=== PATIENT | male | born 1945 | race Caucasian/White ===

== ENCOUNTER 2024-10-27 18:27 | Inpatient (IN) | payer MEDICARE, OTHER ==
--- NOTE | 2024-10-27 19:01 | ED ---
General Adult HPI - General Chief complaint: Syncope Stated complaint: Hypotension,Fall Time Seen by Provider: 10/27/24 18:45 Source: patient, EMS Mode of arrival: EMS Limitations: no limitations - History of Present Illness Initial comments: Dictation was produced using [employer] dictation software. please excuse any grammatical, word or spelling errors. Chief Complaint: 79-year-old male with dizziness and weakness History of Present Illness: Patient 79-year-old male presents to the emergency department via EMS. Patient was he fell off the toilet around 3:00 PM. Although he has been weak. States that he been significantly dizzy. States that he thinks he is dizzy because the sugar is high. Denies any pain complaints. States that he does not feel dizzy at rest. The ROS documented in this emergency department record has been reviewed and confirmed by me. Those systems with pertinent positive or negative responses have been documented in the HPI. All other systems are other negative and/or noncontributory. - Related Data Allergies Allergy/AdvReac Type Severity Reaction Status Date / Time No Known Allergies Allergy Verified 10/27/24 18:30 Review of Systems ROS Statement: Those systems with pertinent positive or pertinent negative responses have been documented in the HPI. ROS Other: All systems not noted in ROS Statement are negative. Past Medical History Past Medical History: Diabetes Mellitus, Hypertension History of Any Multi-Drug Resistant Organisms: None Reported Past Surgical History: Heart Catheterization Past Psychological History: No Psychological Hx Reported Smoking Status: Never smoker Past Alcohol Use History: None Reported Past Drug Use History: None Reported General Exam - General Exam Comments Initial Comments: PHYSICAL EXAM: General Impression: Alert and oriented x3, not in acute distress HEENT: Normocephalic atraumatic, extra-ocular movements intact, pupils equal and reactive to light bilaterally, mucous membranes moist. Cardiovascular: Heart regular rate and rhythm Chest: Able to complete full sentences, no retractions, no tachypnea Abdomen: abdomen soft, non-tender, non-distended, no organomegaly Musculoskeletal: Pulses present and equal in all extremities, no peripheral edema Motor: no focal deficits noted Neurological: CN II-XII grossly intact, no focal motor or sensory deficits noted Skin: Intact with no visualized rashes Psych: Normal affect and mood Limitations: no limitations Course Vital Signs 10/27/24 18:31 Temperature 97.3 F L Pulse Rate 62 Respiratory 18 Rate Blood Pressure 126/66 O2 Sat by Pulse 96 Oximetry EKG Findings - EKG Comments: EKG Findings:: My EKG interpretation: Ventricular rate 62, sinus rhythm, NE interval 241, cures 94, QTc 410. No NE prolongation, no QTC prolongation, no ST or T-wave changes noted. Overall, this EKG is unremarkable Medical Decision Making - Medical Decision Making Was pt. sent in by a medical professional or institution (, PA, ENTRY LEVEL ASSISTANT MANAGER, urgent care, hospital, or retirement...) When possible be specific @ -No Did you speak to anyone other than the patient for history (EMS, parent, family, police, friend...)? What history was obtained from this source @ -No Did you review nursing and triage notes (agree or disagree)? Why? @ -I reviewed and agree with nursing and triage notes Were old charts reviewed (outside hosp., previous admission, EMS record, old EKG, old radiological studies, urgent care reports/EKG's, retirement records)? Report findings @ -No old charts were reviewed Differential Diagnosis (chest pain, altered mental status, abdominal pain women, abdominal pain men, vaginal bleeding, musculoskeletal, weakness, fever, dyspnea, syncope, headache, dizziness, GI bleed, back pain, seizure, CVA, palpatations, mental health)? @ -Differential Dizziness: Benign paroxysmal positional Vertigo, Meniere's disease, otitis media, acoustic neuroma, vertebrobasilar insufficiency, cerebellar stroke, encephalitis, hypovolemic, arrhythmia, coronary artery syndrome, anemia, this is not meant to be an all-inclusive list EKG interpreted by me (3pts min.). @ -See above X-rays interpreted by me (1pt min.). @ -Pending CT interpreted by me (1pt min.). @ -CT head and C-spine shows no acute processes U/S interpreted by me (1pt. min.). @ -None done What testing was considered but not performed or refused? (CT, X-rays, U/S, labs)? Why? @ -None What meds were considered but not given or refused? Why? @ -None Was smoking cessation discussed for >3mins.? @ -No Were there social determinants of health that impacted care today? How? (Homelessness, low income, unemployed, alcoholism, drug addiction, transport ation, low edu. Level, literacy, decrease access to med. care, [facility], rehab)? @ -No Was there de-escalation of care discussed even if they declined (Discuss DNR or withdrawal of care, Hospice)? DNR status @ -No What co-morbidities impacted this encounter? (DM, HTN, Smoking, COPD, CAD, Cancer, CVA, ARF, Chemo, Hep., AIDS, mental health diagnosis, sleep apnea, morbid obesity)? @ -None Was patient admitted / discharged? Hospital course, mention meds given and route, prescriptions, significant lab abnormalities, going to OR and other pertinent info. @ -79-year-old male presents with dizziness. He did fall earlier today at the toilet. Denies any pain from the fall. Vital signs stable. Patient does take Plavix. CT head and C-spine shows no acute process. EKG is unremarkable. Patient well-appearing at the bedside at rest. Denies any dizziness at rest. Labs shows potassium level of 5.9, sodium 131, lactic acidosis 3.9. Unclear what is causing all of this. Medications were reviewed. Unclear exactly what is causing patient to be hyperkalemic. Patient given hyperkalemia cocktail IV fluids. Will be admitted for further care. Case discussed with hospitalist for admission Did you discuss the management of the patient with other professionals (professionals i.e. , PA, ENTRY LEVEL ASSISTANT MANAGER, lab, RT, psych nurse, certified social workers in health care, offender job retention specialist, teacher, school services officer, case picker)? Give summary @ -See above Was critical care preformed (if so, how long)? @ -No Undiagnosed new problem with uncertain prognosis? @ -No Drug Therapy requiring intensive monitoring for toxicity (Heparin, Nitro, Insu raman, Cardizem)? @ -No Were any procedures done? @ -No Diagnosis/symptom? Acute, or Chronic, or Acute on Chronic? Uncomplicated (without systemic symptoms) or Complicated (systemic symptoms)? @ -Metabolic derangement Side effects of treatment? @ -No Exacerbation, Progression, or Severe Exacerbation? @ -No Poses a threat to life or bodily function? How? (Chest pain, USA, ID, pneumonia, PE, COPD, DKA, ARF, appy, cholecystitis, CVA, Diverticulitis, Homicidal, Suicidal, threat to staff... and all critical care pts) @ -yes - Lab Data Result diagrams: 10/27/24 19:07 10/27/24 19:07 Lab Results 10/27/24 10/27/24 10/27/24 Range/Units 19:07 19:07 19:07 WBC 16.56 H (4.50-10.00) 10*3/uL RBC 3.52 L (4.40-5.60) 10*6/uL Hgb 11.7 L (13.0-17.0) g/dL Hct 33.5 L (39.6-50.0) % MCV 95.2 (80.0-97.0) fL MCH 33.2 H (27.0-32.0) pg MCHC 34.9 (32.0-37.0) g/dL Plt Count 250 (140-440) 10*3/uL MPV 9.1 L (9.5-12.2) fL Immature Gran % (Auto) 1.0 % Neutrophils % 84.6 % Lymphocytes % 9.1 % Monocytes % 4.9 % Eosinophils % 0.1 % Basophils % 0.3 % Immature Gran # 0.17 H (0.00-0.04) 10*3/uL Neutrophils # 14.01 H (1.80-7.70) 10*3/uL Lymphocytes # 1.51 (0.90-5.00) 10*3/uL Monocytes # 0.81 (0.20-1.00) 10*3/uL Eosinophils # 0.01 L (0.04-0.35) 10*3/uL Basophils # 0.05 (0.00-0.10) 10*3/uL PT 12.1 (10.0-12.5) sec INR 1.1 (<1.2) APTT 18.7 L (22.0-30.0) sec Sodium 131 L (137-145) mmol/L Potassium 5.9 H (3.5-5.1) mmol/L Chloride 96 L (98-107) mmol/L Carbon Dioxide 24 (22-30) mmol/L Anion Gap 11 mmol/L BUN 46 H (9-20) mg/dL Creatinine 0.70 (0.66-1.25) mg/dL Est GFR (CKD-EPI)AfAm >90 (>60 ml/min/1.73 sqM) Est GFR (CKD-EPI)NonAf >90 (>60 ml/min/1.73 sqM) Glucose 241 H (74-99) mg/dL Plasma Lactic Acid Brendan (0.7-2.0) mmol/L Calcium 9.6 (8.4-10.2) mg/dL Magnesium 1.6 (1.6-2.3) mg/dL Total Bilirubin 0.5 (0.2-1.3) mg/dL AST 21 (17-59) U/L ALT 20 (4-49) U/L Alkaline Phosphatase 49 (38-126) U/L Troponin I (0.000-0.034) ng/mL Total Protein 6.2 L (6.3-8.2) g/dL Albumin 3.9 (3.5-5.0) g/dL 10/27/24 10/27/24 Range/Units 19:07 19:07 WBC (4.50-10.00) 10*3/uL RBC (4.40-5.60) 10*6/uL Hgb (13.0-17.0) g/dL Hct (39.6-50.0) % MCV (80.0-97.0) fL MCH (27.0-32.0) pg MCHC (32.0-37.0) g/dL Plt Count (140-440) 10*3/uL MPV (9.5-12.2) fL Immature Gran % (Auto) % Neutrophils % % Lymphocytes % % Monocytes % % Eosinophils % % Basophils % % Immature Gran # (0.00-0.04) 10*3/uL Neutrophils # (1.80-7.70) 10*3/uL Lymphocytes # (0.90-5.00) 10*3/uL Monocytes # (0.20-1.00) 10*3/uL Eosinophils # (0.04-0.35) 10*3/uL Basophils # (0.00-0.10) 10*3/uL PT (10.0-12.5) sec INR (<1.2) APTT (22.0-30.0) sec Sodium (137-145) mmol/L Potassium (3.5-5.1) mmol/L Chloride (98-107) mmol/L Carbon Dioxide (22-30) mmol/L Anion Gap mmol/L BUN (9-20) mg/dL Creatinine (0.66-1.25) mg/dL Est GFR (CKD-EPI)AfAm (>60 ml/min/1.73 sqM) Est GFR (CKD-EPI)NonAf (>60 ml/min/1.73 sqM) Glucose (74-99) mg/dL Plasma Lactic Acid Brendan 3.9 H* (0.7-2.0) mmol/L Calcium (8.4-10.2) mg/dL Magnesium (1.6-2.3) mg/dL Total Bilirubin (0.2-1.3) mg/dL AST (17-59) U/L ALT (4-49) U/L Alkaline Phosphatase (38-126) U/L Troponin I <0.012 (0.000-0.034) ng/mL Total Protein (6.3-8.2) g/dL Albumin (3.5-5.0) g/dL Disposition Clinical Impression: Hyperkalemia Disposition: ADMITTED IP TO THIS HOSP Condition: Fair Referrals: Nonstaff,Physician [Primary Care Provider] - 1-2 days Decision Time: 20:28
[2024-10-27 19:17] LABS: Basophils # (A) 0.05 10*3/uL (0.00-0.10); Basophils % (A) 0.3 %; Eosinophils # (A) 0.01 10*3/uL (0.04-0.35); Eosinophils % (A) 0.1 %; HCT 33.5 % (39.6-50.0); HGB 11.7 g/dL (13.0-17.0); Lymphocytes # (A) 1.51 10*3/uL (0.90-5.00); Lymphocytes % (A) 9.1 %; MCH 33.2 pg (27.0-32.0); MCHC 34.9 g/dL (32.0-37.0); MCV 95.2 fL (80.0-97.0); Monocytes # (A) 0.81 10*3/uL (0.20-1.00); Monocytes % (A) 4.9 %; Neutrophils # (A) 14.01 10*3/uL (1.80-7.70); Neutrophils % (A) 84.6 %; Platelet Count 250 10*3/uL (140-440); RBC 3.52 10*6/uL (4.40-5.60); RDW 13.0 % (11.5-14.5); WBC 16.56 10*3/uL (4.50-10.00)
[2024-10-27 19:33] LABS: ALT 20 U/L (4-49); AST 21 U/L (17-59); African American GFR (CKD) >90 (>60 ml/min/1.73 sqM); Albumin 3.9 g/dL (3.5-5.0); Alkaline Phosphatase 49 U/L (38-126); Anion Gap 11 mmol/L; Blood Urea Nitrogen 46 mg/dL (9-20); Calcium 9.6 mg/dL (8.4-10.2); Carbon Dioxide 24 mmol/L (22-30); Chloride 96 mmol/L (98-107); Glucose 241 mg/dL (74-99); Magnesium 1.6 mg/dL (1.6-2.3); Non-African American GFR(CKD) >90 (>60 ml/min/1.73 sqM); Potassium 5.9 mmol/L (3.5-5.1); Sodium 131 mmol/L (137-145); Total Protein 6.2 g/dL (6.3-8.2)
[2024-10-27 19:34] LABS: INR 1.1 (<1.2); Prothrombin Time 12.1 sec (10.0-12.5)
[2024-10-27 19:42] LABS: Partial Thromboplastin Time 18.7 sec (22.0-30.0)
--- NOTE | 2024-10-27 19:44 | CT ---
EXAMINATION TYPE: CT brain cspine wo con CT DLP: 1362.9 mGycm, Automated exposure control for dose reduction was used. DATE OF EXAM: 10/27/2024 7:34 PM COMPARISON: None.. CLINICAL INDICATION:Male, 79 years old with history of fall; Pt to ED for syncopal episode fall off o f toilet. Per EMS, pt was pale/cool/diaphoretic upon their arrival. Denies hitting head., pain TECHNIQUE: Brain: Multiple axial CT images of the brain were obtained without IV contrast. Cspine: Axial CT images from the skull base to the inferior aspect of T2 we obtained without intraven ous contrast. Coronal and sagittal reformatted images were also reviewed. FINDINGS: Brain: Extra-axial spaces: No abnormal extra-axial fluid collections. Ventricular system: Dilatation in proportion to cerebral atrophy. Cerebral parenchyma: Cerebral atrophy. No acute intraparenchymal hemorrhage or mass effect. The glasgow -white junction is well differentiated. Scattered hypoattenuating areas are seen within the white mat ter. Cerebellum: Unremarkable. Mass effect: No evidence of midline shift. Intracranial vasculature: unremarkable Soft tissues: Normal. Calvarium/osseous structures: No depressed skull fracture. Persistent metopic suture Paranasal sinuses and mastoid air cells: Clear. Visualized orbits: Orbital contents are intact. Right scleral calcifications. Cervical spine: Fracture: None. Osseous structures: Multilevel disc space narrowing with endplate sclerosis, vacuum disc disease, and osteophytosis. Degenerative changes of the C1-C2 articulation. Vertebral alignment: No spondylolisthesis. Increased cervical lordosis. Spinal canal/Neural Foramina: No evidence of significant spinal canal narrowing. Facet joint uncovert ebral joint arthropathy scattered throughout the cervical spine with varying degrees of neural forami nal stenosis. Neck soft tissues: Prevertebral soft tissues are within normal limits. Left near midline posterior ne ck subcutaneous tissue 4.0 cm well-circumscribed ovoid fluid collection. At the C3-C5 levels. Probabl e sebaceous cyst. Other: The airway is patent. Posterior right upper lobe subpleural calcified granuloma. Bilateral car otid bifurcation calcifications. IMPRESSION: 1. No acute intracranial process. 2. Nonspecific mild white matter changes, likely secondary to chronic small vessel ischemic disease. 3. No evidence of cervical spine fracture. 4. Mild multilevel degenerative disc disease. [facility], , 10/27/2024 7:42 PM
[2024-10-27] MEDS: SODIUM CHLORIDE 0.9% 1,000 ML IV STA (20:08)
[2024-10-27] MEDS: SODIUM ZIRCONIUM CYCLOSILICATE 10 GM PACKET PO ONE (20:14)
[2024-10-27] MEDS ORDERED: NALOXONE 0.4 MG/ML 1 ML VIAL IV PRN (20:19)
[2024-10-27] MEDS: INSULIN REGULAR 100 UNIT/ML VIAL (IV) IV ONE (20:19)
[2024-10-27] MEDS ORDERED: ONDANSETRON 4 MG/2 ML VIAL IVP PRN (20:19)
[2024-10-27] MEDS ORDERED: ACETAMINOPHEN TAB 325 MG TAB PO PRN (20:19)
[2024-10-27] MEDS: DEXTROSE 50% SYRINGE 50 ML IVP ONE (20:22)
--- NOTE | 2024-10-27 20:40 | XR ---
EXAMINATION TYPE: XR chest 1V portable DATE OF EXAM: 10/27/2024 8:36 PM COMPARISON: None TECHNIQUE: XR chest 1V portable Portable AP radiograph of the chest. CLINICAL INDICATION:Male, 79 years old with history of dizziness; FINDINGS: Lungs/Pleura: There is no evidence of pleural effusion, focal consolidation, or pneumothorax. Pulmonary vascularity: Unremarkable. Heart/mediastinum: Cardiomediastinal silhouette is unremarkable. Atherosclerotic calcifications are seen in the aorta. Musculoskeletal: No acute osseous pathology. IMPRESSION: No acute cardiopulmonary disease/process. [facility], , 10/27/2024 8:38 PM
[2024-10-27] MEDS: CALCIUM GLUCONATE IN NACL 1 GM in SALINE 1 100ML.BAG IVPB ONE (21:05)
--- NOTE | 2024-10-27 21:31 | P.HPIM ---
History of Present Illness H&P Date: 10/27/24 Chief Complaint: Lightheadedness and dizziness This is a 79-year-old male patient with a past medical history of [id number] type 2 diabetes mellitus on metformin and glipizide, coronary artery disease, dyslipidemia, essential hypertension and diabetic neuropathy who presents to the ED with a chief complaint of not feeling well associated with dizziness, lightheadedness. Patient visiting from [place] to see his family here in [place]. He reports today not feeling well and especially when he stands up with symptoms of dizziness and lightheadedness. He did had a fall in the bathroom and his had to call 911 to bring him to the ED. reports that he does not feel dizzy at rest. He did not check his blood pressure at home. He does take lisinopril and metoprolol due to history of hypertension and coronary artery disease. No reports of chest pain, shortness of breath or palpitations. No abdominal symptoms except for nausea and had 1 episode of emesis which was nonbloody nonbilious. No genitourinary symptoms. No complications from diabetes including diabetic ulcers or wounds . Upon arrival to the ED, patient was hemodynamically stable. Labs done showing WBC of 16.5, hemoglobin of 11.7, INR 1.1, sodium 131, potassium 5.9, BUN of 46, lactic acid of 3.9, serum glucose 241, AG 11 . Pending urine analysis. Head cervical spine CT was not remarkable.. Chest x-ray was not remarkable. Pending CT abdomen pelvis with IV contrast. Due to significant leukocytosis and lactic acidosis there is concern for sepsis and patient received IV Zosyn. Patient will be admitted for further evaluation and management. Off note, patient did report black tarry stool. He did report that he had a colonoscopy around a month ago but the prep was not appropriate and was told that he has to repeat colonoscopy. Past medical history : Type 2 diabetes mellitus, coronary artery disease, dyslipidemia, essential hypertension, diabetic neuropathy, gout Past surgical history : Right broken hand surgery Social history: Former tobacco user, occasional alcohol use, no illicit drug use Review of system : Negative except for that mentioned HPI PE : General: nontoxic, no distress, appears at stated age Derm: warm, dry, intact Head: atraumatic, normocephalic, symmetric Eyes: EOMI, anicteric sclera Mouth: no lip lesion, mucus membranes moist Cardiovascular: S1 S2 reg, no murmur, rubs, or gallops Lungs: CTA bilateral, no rales, no accessory muscle use Abdominal: soft, non-tender to palpataion, no appreciable organomegaly Extremities: no gross muscle atrophy, no edema, no contractures Neuro: Alert, Oriented, CNII-XII grossly intact, gait normal Psych: well appearing, appropriate affect Assessment and plan : - Leukocytosis with lactic acidosis; concern for sepsis : Unknown source of infection Pending urine analysis with CT abdomen and pelvis Chest x-ray not remarkable Initial lactate of 3.9 and was treated with IV fluid hydration>>> continue on trending lactic acid 2 sets of blood culture Will start patient with IV Zosyn and will continue Will defer ordering COVID/RSV/influenza PCR as there is no respiratory symptoms and chest x-ray is not remarkable -Hyperkalemia : Potassium of 5.9 Status post insulin, dextrose, Lokelma and calcium gluconate Will repeat basic metabolic panel -Azotemia with dehydration : Reports of black tarry stool which may indicate underlying GI bleed as well BUN of 46 Continue with IV fluid hydration and repeat basic metabolic panel -Concern for GI bleed : Reports of black tarry stool Patient on aspirin and Plavix Stool occult H&H every 12 hours IV Protonix 40 mg twice daily If patient's stool occult is positive, consider consulting GI -Normocytic anemia : Hemoglobin of 11.7 However his hemoglobin may be even lower after IV fluids Iron studies, folate, ferritin, vitamin B12 H&H every 12 hours -Hyperglycemia patient known to have dyb-gmxzlmn-ksqkaovvk type 2 diabetes mellitus : Serum glucose of 241 AG 11 Patient not in DKA Continue with low-dose insulin sliding scale and will order HbA1c -Chronic medical problems including coronary artery disease/diabetic neuropathy/essential hypertension/dyslipidemia : Will hold off resuming antihypertensive medication for now as patient 's blood pressure is borderline The rest of his medications will be resumed except for aspirin and Plavix CODE STATUS is full code DVT prophylaxis on SCD Disposition : Home when patient is stable Time spent : 55 min Past Medical History Past Medical History: Diabetes Mellitus, Hypertension History of Any Multi-Drug Resistant Organisms: None Reported Past Surgical History: Heart Catheterization Past Psychological History: No Psychological Hx Reported Smoking Status: Never smoker Past Alcohol Use History: None Reported Past Drug Use History: None Reported Medications and Allergies Allergies Allergy/AdvReac Type Severity Reaction Status Date / Time No Known Allergies Allergy Verified 10/27/24 18:30 Physical Exam Vitals: Vital Signs Temp Pulse Resp BP Pulse Ox 10/27/24 18:31 97.3 F L 62 18 126/66 96 Intake and Output 10/27/24 10/27/24 10/27/24 06:59 14:59 22:59 Other: Weight 95.254 kg Results CBC & Chem 7: 10/27/24 19:07 10/27/24 19:07 Labs: Abnormal Lab Results - Last 24 Hours (Table) 10/27/24 10/27/24 10/27/24 Range/Units 19:07 19:07 19:07 WBC 16.56 H (4.50-10.00) 10*3/uL RBC 3.52 L (4.40-5.60) 10*6/uL Hgb 11.7 L (13.0-17.0) g/dL Hct 33.5 L (39.6-50.0) % MCH 33.2 H (27.0-32.0) pg MPV 9.1 L (9.5-12.2) fL Immature Gran # 0.17 H (0.00-0.04) 10*3/uL Neutrophils # 14.01 H (1.80-7.70) 10*3/uL Eosinophils # 0.01 L (0.04-0.35) 10*3/uL APTT 18.7 L (22.0-30.0) sec Sodium 131 L (137-145) mmol/L Potassium 5.9 H (3.5-5.1) mmol/L Chloride 96 L (98-107) mmol/L BUN 46 H (9-20) mg/dL Glucose 241 H (74-99) mg/dL Plasma Lactic Acid Brendan (0.7-2.0) mmol/L Total Protein 6.2 L (6.3-8.2) g/dL 10/27/24 Range/Units 19:07 WBC (4.50-10.00) 10*3/uL RBC (4.40-5.60) 10*6/uL Hgb (13.0-17.0) g/dL Hct (39.6-50.0) % MCH (27.0-32.0) pg MPV (9.5-12.2) fL Immature Gran # (0.00-0.04) 10*3/uL Neutrophils # (1.80-7.70) 10*3/uL Eosinophils # (0.04-0.35) 10*3/uL APTT (22.0-30.0) sec Sodium (137-145) mmol/L Potassium (3.5-5.1) mmol/L Chloride (98-107) mmol/L BUN (9-20) mg/dL Glucose (74-99) mg/dL Plasma Lactic Acid Brendan 3.9 H* (0.7-2.0) mmol/L Total Protein (6.3-8.2) g/dL
--- NOTE | 2024-10-27 21:57 | CT ---
EXAMINATION TYPE: CT abdomen pelvis w con CT DLP: 1213.3 mGycm, Automated exposure control for dose reduction was used. DATE OF EXAM: 10/27/2024 9:41 PM COMPARISON: Non- CLINICAL INDICATION:Male, 79 years old with history of sepsis of unknown source . patient had emesis; Sepsis of unknown source. Pt to ED for syncopal episode fall off of toilet. Per EMS, pt was pale/career development coordinator l/diaphoretic upon their arrival. Denies hitting head TECHNIQUE: Standard CT of the abdomen and pelvis following the administration of 100 cc of Isovue 3 00 IV contrast material. Coronal and sagittal reformats were performed. FINDINGS: LOWER CHEST: Mild posterior dependent subsegmental atelectasis is noted. RCA calcifications. Mitral a nnulus calcifications. Trace anterior pericardial effusion. ABDOMEN LIVER: Unremarkable GALLBLADDER AND BILE DUCTS: Unremarkable. PANCREAS: Unremarkable. SPLEEN: Unremarkable. ADRENAL GLANDS: Unremarkable. KIDNEYS AND URETERS: No evidence of hydronephrosis or renal calculus. The kidneys enhance symmetrical ly. Right renal lower pole anterior exophytic simple cyst measuring 2.3 cm. There are 3 left renal si mple cysts with largest in the superior pole measuring up to 3.4 cm. No follow-up recommended. Contra sted imaging within both collecting systems and proximal ureters on the delayed phase. PELVIS BLADDER: Unremarkable REPRODUCTIVE: Unremarkable. ABDOMEN & PELVIS STOMACH AND BOWEL: Stomach and duodenum are unremarkable. Extensive distal colonic diverticulosis wit hout definitive evidence for acute diverticulitis. The appendix is not definitively identified. No hdz rrounding inflammatory changes to suggest acute appendicitis. No focal bowel wall thickening identifi ed. No evidence of bowel obstruction. PERITONEUM: No evidence of pneumoperitoneum or free fluid. VASCULATURE: Moderate atherosclerotic calcifications are present throughout the abdominal aorta and i ts branches. No evidence of aortic aneurysm. MUSCULOSKELETAL: No acute osseous abnormalities. Mild degenerative disc disease at L4-L5. LYMPH NODES: No evidence for lymphadenopathy. SOFT TISSUE/ABDOMINAL WALL: Multiple punctate calcified granulomas within the bilateral gluteal tissu es. IMPRESSION: 1. No CT evidence for acute abdominal/pelvic process. 2. Distal colonic diverticulosis without evidence for acute diverticulitis. [facility], , 10/27/2024 9:54 PM
[2024-10-27] MEDS: PANTOPRAZOLE 40 MG/10 ML VIAL IVP SCH (22:19)
[2024-10-27] MEDS: PIPERACILLIN-TAZOBACTAM 3.375 GM in SODIUM CHLORIDE 0.9% 100 ML IVPB SCH (22:21)
[2024-10-27] MEDS: SODIUM CHLORIDE 0.9% 1,000 ML IV SCH (22:21)
[2024-10-27 23:45] LABS: Bilirubin,Urine Negative (Negative); Color,Urine Colorless; Glucose,Urine (UA) 4+ (Negative); Ketones,Urine 1+ (Negative); PH, Urine 6.0 (5.0-8.0); Protein,Urine Negative (Negative); Specific Gravity,Urine 1.030 (1.001-1.035)
[2024-10-27 23:46] LABS: Blood,Urine Negative (Negative); Leukocyte Esterase,Urine Negative (Negative); Nitrite,Urine Negative (Negative); Urobilinogen,Urine <2.0 mg/dL (<2.0)
[2024-10-28 00:26] LABS: African American GFR (CKD) >90 (>60 ml/min/1.73 sqM); Anion Gap 11 mmol/L; Blood Urea Nitrogen 38 mg/dL (9-20); Calcium 9.4 mg/dL (8.4-10.2); Carbon Dioxide 21 mmol/L (22-30); Chloride 100 mmol/L (98-107); Glucose 203 mg/dL (74-99); Non-African American GFR(CKD) >90 (>60 ml/min/1.73 sqM); Potassium 4.6 mmol/L (3.5-5.1); Sodium 132 mmol/L (137-145)
[2024-10-28 01:52] LABS: HCT 29.3 % (39.6-50.0); HGB 10.1 g/dL (13.0-17.0); MCH 32.1 pg (27.0-32.0); MCHC 34.5 g/dL (32.0-37.0); MCV 93.0 fL (80.0-97.0); Platelet Count 228 10*3/uL (140-440); RBC 3.15 10*6/uL (4.40-5.60); RDW 13.2 % (11.5-14.5); WBC 13.36 10*3/uL (4.50-10.00)
[2024-10-28 07:38] LABS: Glucose,Whole Blood 171 mg/dL (70-110)
[2024-10-28] MEDS: INSULIN LISPRO (HumaLOG) 100 UNIT/ML 10 mL VL SQ SCH (07:47)
[2024-10-28 10:28] LABS: Ferritin 149.0 ng/mL (22.0-322.0); Iron 75.0 UG/DL (65-175); Total Iron Binding Capacity 295.0 UG/DL (228-460); Vitamin B12 330.0 pg/mL (200.0-944.0)
[2024-10-28 12:05] LABS: African American GFR (CKD) >90 (>60 ml/min/1.73 sqM); Anion Gap 9 mmol/L; Blood Urea Nitrogen 28 mg/dL (9-20); Calcium 9.1 mg/dL (8.4-10.2); Carbon Dioxide 24 mmol/L (22-30); Chloride 102 mmol/L (98-107); Glucose 245 mg/dL (74-99); Non-African American GFR(CKD) >90 (>60 ml/min/1.73 sqM); Potassium 4.5 mmol/L (3.5-5.1); Sodium 135 mmol/L (137-145)
[2024-10-28 12:14] LABS: Glucose,Whole Blood 256 mg/dL (70-110)
[2024-10-28] MEDS: EZETIMIBE 10 MG TAB PO SCH (12:19)
[2024-10-28] MEDS: LACTATED RINGERS 1,000 ML IV SCH (12:21)
--- NOTE | 2024-10-28 15:38 | P.PN ---
Subjective Progress Note Date: 10/28/24 Hospital Course: This is a 79-year-old male patient with a past medical history of [id number] type 2 diabetes mellitus on metformin and glipizide, coronary artery disease, dyslipidemia, essential hypertension and diabetic neuropathy who presents to the ED with a chief complaint of not feeling well associated with dizziness, lightheadedness. Patient visiting from [place] to see his family here in [place]. He did had a fall in the bathroom and his had to call 911 to bring him to the ED. He also complains of nausea and 1 episode of nonbloody, nonbilious emesis and did have a BM that was black tarry stool. Pt had a colonoscopy approximately 1 months ago but unable to proceed due to prep and told to repeat. He reports this was a routine colonoscopy. Upon arrival to the ED, patient was hemodynamically stable. Labs done showing WBC of 16.5, hemoglobin of 11.7, INR 1.1, sodium 131, potassium 5.9, BUN of 46, lactic acid of 3.9, serum glucose 241, AG 11. Pending urine analysis. Head cervical spine CT was not remarkable. Chest x-ray was not remarkable. CT abdomen/ pelvis was unremarkable. While inpatient, he received fluids. Subjective: Patient seen and examined at bedside. No acute events overnight. Patient notes his dizziness and lightheadedness has improved with no symptoms last night. Patient states he takes aspirin and Plavix for coronary artery disease. He reports he does not have any stents placed as they were unable to place them. He denies nausea, vomiting, abdominal pain, chest pain, shortness of breath, dysuria. Pertinent positives and negatives as discussed above, a complete review of systems was performed and all other systems are negative. Vitals: Signs Reviewed Physical Exam: General: nontoxic, no distress, appears at stated age Derm: warm, dry, intact Head: atraumatic, normocephalic, symmetric Eyes: EOMI, anicteric sclera Mouth: no lip lesion, mucus membranes moist Cardiovascular: S1 S2 reg, no murmur, rubs, or gallops Lungs: CTA bilateral, no rhonchi, no rales, no accessory muscle use Abdominal: soft, non-tender to palpation, no appreciable organomegaly Extremities: no gross muscle atrophy, no edema Neuro: Alert, Oriented, CNII-XII grossly intact, gait normal Psych: well appearing, appropriate affect Data Received Today: Pertinent Labs: WBC 13.36, hemoglobin 10.1, hematocrit 29.3, sodium 135, potassium 4.5, BUN 28, creatinine 0.53, A1c 7.5. Imaging: CT abdomen/pelvis - no acute abdominal pelvic process, distal colonic diverticulosis without acute diverticulitis. Iron, folate, B12 studies unremarkable Assessment and Plan: #. Azotemia with dehydration #. Hypovolemic hyponatremia #. Weakness with dizziness and lightheadedness #Metabolic acidosis - Discontinue Zosyn - Continue to monitor with BMP - Fluids changed to LR 125ml/hr #. Concern for GI bleed - Monitor H&H daily - Continue IV Protonix 40 mg twice daily #. Hyperglycemia - DMT2 - A1c 7.5 - Will continue to monitor - Continue low-dose SSI, if continued to be elevated can add long-acting insulin tomorrow. #. Hyperkalemia - resolved - Will continue to monitor #. Normocytic anemia - Iron, folate, B12 studies unremarkable - Continue to monitor Chronic CAD -holding aspirin and Plavix HTN -continue home metoprolol. Holding lisinopril HLD -continue home ezetimibe DMT2 - low dose SSI, will add lantus if still elevated tomorrow. Gout continue home allopurinol Diabetic neuropathycontinue home gabapentin DVT ppx: None concern for GI bleed Code status: Full code Anticipated discharge place: Home Anticipated discharge time: Pending clinical course Geraldine Smith DO PGY-1 IM I have seen and evaluated the patient today. Discussed with the resident and a gree with the residents finding and plan as documented in the resident's note. Changes highlighted in blue font. Dictation was produced using [email or web address] dictation software. please excuse any grammatical, word or spelling errors. Objective - Vital Signs Vital signs: Vital Signs Temp 97.6 F 10/28/24 07:01 Pulse 98 10/28/24 10:29 Resp 18 10/28/24 10:29 BP 127/70 10/28/24 10:29 Pulse Ox 100 10/28/24 10:29 FiO2 Intake & Output 10/27/24 10/28/24 10/28/24 18:59 06:59 18:59 Weight 95.254 kg - Labs CBC & Chem 7: 10/28/24 01:48 10/28/24 11:42 Labs: Abnormal Lab Results - Last 24 Hours (Table) 10/27/24 10/27/24 10/27/24 Range/Units 19:07 19:07 19:07 WBC 16.56 H (4.50-10.00) 10*3/uL RBC 3.52 L (4.40-5.60) 10*6/uL Hgb 11.7 L (13.0-17.0) g/dL Hct 33.5 L (39.6-50.0) % MCH 33.2 H (27.0-32.0) pg MPV 9.1 L (9.5-12.2) fL Immature Gran # 0.17 H (0.00-0.04) 10*3/uL Neutrophils # 14.01 H (1.80-7.70) 10*3/uL Eosinophils # 0.01 L (0.04-0.35) 10*3/uL APTT 18.7 L (22.0-30.0) sec Sodium 131 L (137-145) mmol/L Potassium 5.9 H (3.5-5.1) mmol/L Chloride 96 L (98-107) mmol/L Carbon Dioxide (22-30) mmol/L BUN 46 H (9-20) mg/dL Creatinine (0.66-1.25) mg/dL Glucose 241 H (74-99) mg/dL POC Glucose (mg/dL) (70-110) mg/dL Hemoglobin A1c (<=6.0) % Plasma Lactic Acid Brendan (0.7-2.0) mmol/L Total Protein 6.2 L (6.3-8.2) g/dL Urine Glucose (UA) (Negative) Urine Ketones (Negative) 10/27/24 10/27/24 10/27/24 Range/Units 19:07 23:09 23:09 WBC (4.50-10.00) 10*3/uL RBC (4.40-5.60) 10*6/uL Hgb (13.0-17.0) g/dL Hct (39.6-50.0) % MCH (27.0-32.0) pg MPV (9.5-12.2) fL Immature Gran # (0.00-0.04) 10*3/uL Neutrophils # (1.80-7.70) 10*3/uL Eosinophils # (0.04-0.35) 10*3/uL APTT (22.0-30.0) sec Sodium 132 L (137-145) mmol/L Potassium (3.5-5.1) mmol/L Chloride (98-107) mmol/L Carbon Dioxide 21 L (22-30) mmol/L BUN 38 H (9-20) mg/dL Creatinine 0.53 L (0.66-1.25) mg/dL Glucose 203 H (74-99) mg/dL POC Glucose (mg/dL) (70-110) mg/dL Hemoglobin A1c (<=6.0) % Plasma Lactic Acid Brendan 3.9 H* 2.8 H* (0.7-2.0) mmol/L Total Protein (6.3-8.2) g/dL Urine Glucose (UA) (Negative) Urine Ketones (Negative) 10/27/24 10/28/24 10/28/24 Range/Units 23:35 01:48 01:48 WBC 13.36 H (4.50-10.00) 10*3/uL RBC 3.15 L (4.40-5.60) 10*6/uL Hgb 10.1 L (13.0-17.0) g/dL Hct 29.3 L (39.6-50.0) % MCH 32.1 H (27.0-32.0) pg MPV 8.9 L (9.5-12.2) fL Immature Gran # (0.00-0.04) 10*3/uL Neutrophils # (1.80-7.70) 10*3/uL Eosinophils # (0.04-0.35) 10*3/uL APTT (22.0-30.0) sec Sodium (137-145) mmol/L Potassium (3.5-5.1) mmol/L Chloride (98-107) mmol/L Carbon Dioxide (22-30) mmol/L BUN (9-20) mg/dL Creatinine (0.66-1.25) mg/dL Glucose (74-99) mg/dL POC Glucose (mg/dL) (70-110) mg/dL Hemoglobin A1c 7.5 H (<=6.0) % Plasma Lactic Acid Brendan (0.7-2.0) mmol/L Total Protein (6.3-8.2) g/dL Urine Glucose (UA) 4+ H (Negative) Urine Ketones 1+ H (Negative) 10/28/24 10/28/24 10/28/24 Range/Units 03:01 07:36 11:42 WBC (4.50-10.00) 10*3/uL RBC (4.40-5.60) 10*6/uL Hgb (13.0-17.0) g/dL Hct (39.6-50.0) % MCH (27.0-32.0) pg MPV (9.5-12.2) fL Immature Gran # (0.00-0.04) 10*3/uL Neutrophils # (1.80-7.70) 10*3/uL Eosinophils # (0.04-0.35) 10*3/uL APTT (22.0-30.0) sec Sodium 135 L (137-145) mmol/L Potassium (3.5-5.1) mmol/L Chloride (98-107) mmol/L Carbon Dioxide (22-30) mmol/L BUN 28 H (9-20) mg/dL Creatinine 0.53 L (0.66-1.25) mg/dL Glucose 245 H (74-99) mg/dL POC Glucose (mg/dL) 171 H (70-110) mg/dL Hemoglobin A1c (<=6.0) % Plasma Lactic Acid Brendan 2.8 H* (0.7-2.0) mmol/L Total Protein (6.3-8.2) g/dL Urine Glucose (UA) (Negative) Urine Ketones (Negative) 10/28/24 Range/Units 12:13 WBC (4.50-10.00) 10*3/uL RBC (4.40-5.60) 10*6/uL Hgb (13.0-17.0) g/dL Hct (39.6-50.0) % MCH (27.0-32.0) pg MPV (9.5-12.2) fL Immature Gran # (0.00-0.04) 10*3/uL Neutrophils # (1.80-7.70) 10*3/uL Eosinophils # (0.04-0.35) 10*3/uL APTT (22.0-30.0) sec Sodium (137-145) mmol/L Potassium (3.5-5.1) mmol/L Chloride (98-107) mmol/L Carbon Dioxide (22-30) mmol/L BUN (9-20) mg/dL Creatinine (0.66-1.25) mg/dL Glucose (74-99) mg/dL POC Glucose (mg/dL) 256 H (70-110) mg/dL Hemoglobin A1c (<=6.0) % Plasma Lactic Acid Brendan (0.7-2.0) mmol/L Total Protein (6.3-8.2) g/dL Urine Glucose (UA) (Negative) Urine Ketones (Negative)
[2024-10-28 18:00] LABS: Glucose,Whole Blood 152 mg/dL (70-110)
[2024-10-28 19:50] LABS: Glucose,Whole Blood 246 mg/dL (70-110)
[2024-10-28] MEDS: METOPROLOL TARTRATE 25 MG TAB PO SCH (19:53)
[2024-10-28] MEDS: GABAPENTIN 300 MG CAP PO SCH (19:53)
[2024-10-29 06:15] LABS: Glucose,Whole Blood 151 mg/dL (70-110)
[2024-10-29 06:24] LABS: Basophils # (A) 0.04 10*3/uL (0.00-0.10); Basophils % (A) 0.4 %; Eosinophils # (A) 0.16 10*3/uL (0.04-0.35); Eosinophils % (A) 1.6 %; HCT 24.2 % (39.6-50.0); Lymphocytes # (A) 2.86 10*3/uL (0.90-5.00); Lymphocytes % (A) 29.2 %; MCH 33.2 pg (27.0-32.0); MCHC 34.7 g/dL (32.0-37.0); MCV 95.7 fL (80.0-97.0); Monocytes # (A) 0.95 10*3/uL (0.20-1.00); Monocytes % (A) 9.7 %; Neutrophils # (A) 5.70 10*3/uL (1.80-7.70); Neutrophils % (A) 58.4 %; Platelet Count 186 10*3/uL (140-440); RBC 2.53 10*6/uL (4.40-5.60); RDW 13.4 % (11.5-14.5); WBC 9.78 10*3/uL (4.50-10.00)
[2024-10-29 06:32] LABS: HGB 8.4 g/dL (13.0-17.0)
[2024-10-29 06:42] LABS: African American GFR (CKD) >90 (>60 ml/min/1.73 sqM); Anion Gap 6 mmol/L; Blood Urea Nitrogen 16 mg/dL (9-20); Calcium 8.9 mg/dL (8.4-10.2); Carbon Dioxide 25 mmol/L (22-30); Chloride 102 mmol/L (98-107); Glucose 127 mg/dL (74-99); Non-African American GFR(CKD) >90 (>60 ml/min/1.73 sqM); Potassium 4.1 mmol/L (3.5-5.1); Sodium 133 mmol/L (137-145)
[2024-10-29] MEDS: METOPROLOL TARTRATE 50 MG TAB PO SCH (08:11)
[2024-10-29 12:10] LABS: Glucose,Whole Blood 167 mg/dL (70-110)
--- NOTE | 2024-10-29 13:34 | P.PN ---
Subjective Progress Note Date: 10/29/24 Subjective: Seen and examined at bedside. No acute events overnight. Complaining of occasional lightheadedness when getting out of the bed. No melena or hematochezia noted Pertinent positives and negatives as discussed above, a complete review of systems was performed and all other systems are negative. Vitals Signs Reviewed. General: Nontoxic, no distress, appears at stated age Derm: Warm, dry Head: Atraumatic, normocephalic, symmetric Eyes: EOMI, no lid lag, anicteric sclera Mouth: No lip lesion, mucus membranes moist Cardiovascular: S1S2 reg, no murmur Lungs: CTA bilateral, no rhonchi, no rales, no accessory muscle use Abdominal: Soft, nontender to palpation, no guarding, no appreciable organomegaly Ext: No gross muscle atrophy, no edema, no contractures Neuro: CN II-XI grossly intact, no focal neuro deficits Psych: Alert, oriented, appropriate affect Data Reviewed Today: Pertinent Labs: WBC 9.78, hemoglobin 8.4, sodium 133, creatinine 0.48, blood sugars range between 127-167 Imaging: No new imaging Assessment and Plan: Active: Dehydration, resolved Leukocytosis, reactive, resolved Lactic acidosis, resolved Orthostatic hypotension, resolved Hyperkalemia, resolved - Discontinue IV fluids - Repeat orthostatic vitals were negative Reported history of melena Suspected upper GI bleed - Normocytic anemia - Hemoglobin continues to downtrend - No reported active bleeding - Restart aspirin 81, Plavix 75 daily - Repeat CBC tomorrow, if stable, patient can be discharged - For now continue pantoprazole 40 IV twice daily Type 2 diabetes - Sliding scale insulin, monitor for hypoglycemia Chronic: Hypertension Gout Dyslipidemia Neuropathy DVT ppx: Patient ambulatory Code status: Full code Anticipated discharge place: Pending clinical course Anticipated discharge time: Pending clinical course Objective - Vital Signs Vital signs: Vital Signs Temp 98.2 F 10/29/24 11:10 Pulse 59 L 10/29/24 11:10 Resp 18 10/29/24 07:06 BP 116/69 10/29/24 11:10 Pulse Ox 98 10/29/24 07:06 FiO2 Intake & Output 10/28/24 10/29/24 10/29/24 18:59 06:59 18:59 Intake Total 591 Balance 591 Weight 95.254 kg Intake: Oral 591 Other: Voiding Method Toilet Toilet # Voids 2 - Labs CBC & Chem 7: 10/29/24 06:04 10/29/24 06:04 Labs: Abnormal Lab Results - Last 24 Hours (Table) 10/28/24 10/28/24 10/29/24 Range/Units 17:59 19:48 06:04 RBC 2.53 L (4.40-5.60) 10*6/uL Hgb 8.4 L D (13.0-17.0) g/dL Hct 24.2 L (39.6-50.0) % MCH 33.2 H (27.0-32.0) pg MPV 8.8 L (9.5-12.2) fL Immature Gran # 0.07 H (0.00-0.04) 10*3/uL Sodium (137-145) mmol/L Creatinine (0.66-1.25) mg/dL Glucose (74-99) mg/dL POC Glucose (mg/dL) 152 H 246 H (70-110) mg/dL 10/29/24 10/29/24 10/29/24 Range/Units 06:04 06:13 12:08 RBC (4.40-5.60) 10*6/uL Hgb (13.0-17.0) g/dL Hct (39.6-50.0) % MCH (27.0-32.0) pg MPV (9.5-12.2) fL Immature Gran # (0.00-0.04) 10*3/uL Sodium 133 L (137-145) mmol/L Creatinine 0.48 L (0.66-1.25) mg/dL Glucose 127 H (74-99) mg/dL POC Glucose (mg/dL) 151 H 167 H (70-110) mg/dL Microbiology - Last 24 Hours (Table) 10/27/24 23:00 Blood Culture - Preliminary Blood
[2024-10-29] MEDS: ASPIRIN 81 MG PO SCH (14:44)
[2024-10-29] MEDS: CLOPIDOGREL 75 MG TAB PO SCH (14:44)
[2024-10-29 17:11] LABS: Glucose,Whole Blood 190 mg/dL (70-110)
[2024-10-29 20:19] LABS: Glucose,Whole Blood 191 mg/dL (70-110)
[2024-10-30 06:08] LABS: Glucose,Whole Blood 162 mg/dL (70-110)
[2024-10-30 06:26] LABS: Basophils # (A) 0.05 10*3/uL (0.00-0.10); Basophils % (A) 0.7 %; Eosinophils # (A) 0.18 10*3/uL (0.04-0.35); Eosinophils % (A) 2.4 %; HCT 23.7 % (39.6-50.0); HGB 8.3 g/dL (13.0-17.0); Lymphocytes # (A) 2.46 10*3/uL (0.90-5.00); Lymphocytes % (A) 32.2 %; MCH 33.3 pg (27.0-32.0); MCHC 35.0 g/dL (32.0-37.0); MCV 95.2 fL (80.0-97.0); Monocytes # (A) 0.81 10*3/uL (0.20-1.00); Monocytes % (A) 10.6 %; Neutrophils # (A) 4.11 10*3/uL (1.80-7.70); Neutrophils % (A) 53.7 %; Platelet Count 212 10*3/uL (140-440); RBC 2.49 10*6/uL (4.40-5.60); RDW 13.2 % (11.5-14.5); WBC 7.64 10*3/uL (4.50-10.00)
[2024-10-30 07:31] VITALS: BP 129/76; PULSE 57; RESP 15; TEMP 97.7
[2024-10-30 08:06] LABS: African American GFR (CKD) >90 (>60 ml/min/1.73 sqM); Anion Gap 5 mmol/L; Blood Urea Nitrogen 12 mg/dL (9-20); Calcium 8.7 mg/dL (8.4-10.2); Carbon Dioxide 25 mmol/L (22-30); Chloride 102 mmol/L (98-107); Glucose 140 mg/dL (74-99); Non-African American GFR(CKD) >90 (>60 ml/min/1.73 sqM); Potassium 4.1 mmol/L (3.5-5.1); Sodium 132 mmol/L (137-145)
--- NOTE | 2024-10-30 13:48 | P.DS ---
Providers Date of admission: 10/27/24 20:20 Expected date of discharge: 10/30/24 Attending physician: Richard Polanco Primary care physician: Physician Nonstaff Hospital Course: Discharge Diagnosis: Suspected upper GI bleed Dehydration, resolved Leukocytosis, reactive, resolved Lactic acidosis, resolved Type 2 diabetes Hypertension Gout Dyslipidemia Neuropathy Hospital Course: This is a 79-year-old male patient with a past medical history of [id number] type 2 diabetes mellitus on metformin and glipizide, coronary artery disease, dyslipidemia, essential hypertension and diabetic neuropathy who presents to the ED with a chief complaint of not feeling well associated with dizziness, lightheadedness. Patient visiting from [place] to see his family here in [place]. He did had a fall in the bathroom and his had to call 911 to bring him to the ED. He also complains of nausea and 1 episode of nonbloody, nonbilious emesis and did have a BM that was black tarry stool. Pt had a colonoscopy approximately 1 months ago but unable to proceed due to prep and told to repeat. He reports this was a routine colonoscopy. Upon arrival to the ED, patient was hemodynamically stable. Labs done showing WBC of 16.5, hemoglobin of 11.7, INR 1.1, sodium 131, potassium 5.9, BUN of 46, lactic acid of 3.9, serum glucose 241, AG 11. Pending urine analysis. Head cervical spine CT was not remarkable. Chest x-ray was not remarkable. CT abdomen/ pelvis was unremarkable. While inpatient, he received fluids and at time of discharge has not had any dizziness or lightheadedness. Pt's hemoglobin was monitored and is currently stable at 8.3 and his WBC is 7.64. Electrolytes were monitored and are stable. Continue pantoprazole 40 mg p.o. twice daily outpatiently. Follow-up with PCP, and GI in 1 week. Patient seen and examined at bedside. Pt is stable and has no complaints at discharge. Vital signs reviewed and stable. Physical examination: Vital signs reviewed General: non toxic, no distress, appears at stated age, normal weight Derm: no unusual rashes/lesions, warm Head: atraumatic, normocephalic, symmetric Eyes: EOMI, anicteric sclera, pupils equal round reactive to light ENT: Nose and ears atraumatic Mouth: no lip lesion, mucus membranes moist Cardiovascular: S1S2 reg, no murmur, no edema Lungs: CTA bilateral, no rhonchi, no rales, no accessory muscle use Abdominal: soft, nontender to palpation, no guarding Ext: muscle strength 5 out of 5 in all 4 extremities grossly, no gross muscle atrophy Neuro: CN II-XI grossly intact, no gross focal neuro deficits Psych: Alert, oriented to person, place, and time A total of greater than 30 minutes of time were spent preparing this complex discharge summary. Patient was discharged on 10/30/2024. Geraldine Smith DO PGY-1 IM Dictation was produced using [employer] dictation software. please excuse any grammatical, word or spelling errors. I have seen and evaluated the patient today. Discussed with the resident and agree with the residents finding and plan as documented in the resident's note. Changes highlighted in blue font. Patient Condition at Discharge: Stable Plan - Discharge Summary Discharge Rx Participant: Yes New Discharge Prescriptions: New Pantoprazole [Protonix] 40 mg PO BID #120 tab Continue Aspirin EC [Ecotrin Low Dose] 81 mg PO DAILY lisinopriL [Zestril] 10 mg PO HS lisinopriL [Zestril] 20 mg PO DAILY glipiZIDE [Glucotrol] 2.5 mg PO AC-BID Ezetimibe [Zetia] 10 mg PO DAILY Clopidogrel [Plavix] 75 mg PO DAILY Mv-Min/Folic/K1/Lycopen/Lutein [Centrum Silver Men Tablet] 1 tab PO DAILY Metoprolol Tartrate [Lopressor] 50 mg PO DAILY metFORMIN HCL 500 mg PO BID-W/MEALS Metoprolol Tartrate [Lopressor] 25 mg PO HS Gabapentin 600 mg PO HS allopurinoL 300 mg PO DAILY Cyanocobalamin (Vitamin B-12) [Vitamin B-12] 1,000 mcg PO DAILY Discharge Medication List Aspirin EC [Ecotrin Low Dose] 81 mg PO DAILY 10/28/24 [History] Clopidogrel [Plavix] 75 mg PO DAILY 10/28/24 [History] Cyanocobalamin (Vitamin B-12) [Vitamin B-12] 1,000 mcg PO DAILY 10/28/24 [History] Ezetimibe [Zetia] 10 mg PO DAILY 10/28/24 [History] Gabapentin 600 mg PO HS 10/28/24 [History] Metoprolol Tartrate [Lopressor] 25 mg PO HS 10/28/24 [History] Metoprolol Tartrate [Lopressor] 50 mg PO DAILY 10/28/24 [History] Mv-Min/Folic/K1/Lycopen/Lutein [Centrum Silver Men Tablet] 1 tab PO DAILY 10/28/24 [History] allopurinoL 300 mg PO DAILY 10/28/24 [History] glipiZIDE [Glucotrol] 2.5 mg PO AC-BID 10/28/24 [History] lisinopriL [Zestril] 10 mg PO HS 10/28/24 [History] lisinopriL [Zestril] 20 mg PO DAILY 10/28/24 [History] metFORMIN HCL 500 mg PO BID-W/MEALS 10/28/24 [History] Pantoprazole [Protonix] 40 mg PO BID #120 tab 10/30/24 [Rx] Follow up Appointment(s)/Referral(s): Smith Lundy MD [STAFF PHYSICIAN] - 1 Week Natacha Ley MD [STAFF PHYSICIAN] - 1 Week (office will call you with an appointment) Nonstaff,Physician [Primary Care Provider] - 1-2 days Patient Instructions/Handouts: Gastrointestinal Bleeding (DC), Dehydration (DC) Activity/Diet/Wound Care/Special Instructions: Please see PCP and GI. Discharge Disposition: HOME SELF-CARE
== END 2024-10-30 10:18 | disposition home or self-care (01) | DRG 641 ==
LOC: EC 18:27 → 6NMEDSUR 20:20
PROVIDERS: ADMIT Student in an Organized Health Care Education/Training Program; ATTEND Student in an Organized Health Care Education/Training Program
DX: E87.5 Hyperkalemia (principal); E86.0 Dehydration; K92.2 Gastrointestinal hemorrhage, unspecified; E87.20 Acidosis, unspecified; E87.1 Hypo-osmolality and hyponatremia; E11.40 Type 2 diabetes mellitus with diabetic neuropathy, unspecified; D64.9 Anemia, unspecified; I10 Essential (primary) hypertension; E11.65 Type 2 diabetes mellitus with hyperglycemia; E78.5 Hyperlipidemia, unspecified; W18.11XA Fall from or off toilet without subsequent striking against object, initial encounter; I95.1 Orthostatic hypotension; M10.9 Gout, unspecified; E86.1 Hypovolemia; I25.10 Atherosclerotic heart disease of native coronary artery without angina pectoris; Z79.02 Long term (current) use of antithrombotics/antiplatelets; Z79.82 Long term (current) use of aspirin; Z79.84 Long term (current) use of oral hypoglycemic drugs; Z87.891 Personal history of nicotine dependence
CPT/HCPCS: 36415; 70450; 71045; 72125; 74177; 80048; 80053; 81003; 82607; 82728; 82746; 83036; 83540; 83550; 83605; 83735; 84145; 84484; 85025; 85027; 85610; 85730; 86140; 87040; 93005; 96361; 96365; 96366; 96375; 96376; 99285